=== PATIENT | female | born 1955 | race Caucasian/White ===

== ENCOUNTER 2017-11-24 15:19 | Emergency (ER) | payer OTHER ==
[2017-11-24] MEDS ORDERED: Sulfamethoxazole/Trimethoprim 800-160 MG Tab ONE (16:00)
--- NOTE | 2017-11-24 17:39 | ER ---
Date of Service: 11/24/2017 HISTORY OF PRESENT ILLNESS: The patient is a 62-year-old female who comes in today concerned that she may have a urinary tract infection. She notes she has an unusual odor to her urine. She also has a little bit of low back discomfort. She does not have flank pain. She does not have nausea, vomiting, fevers, or chills. She does not really even have much of a dysuria. ALLERGIES: SHE HAS NO ALLERGIES. PHYSICAL EXAMINATION: GENERAL: On physical exam, she is alert, oriented, no apparent distress. HEENT : Unremarkable. NECK: Supple. No nodes. LUNGS: Clear. HEART: Regular sinus rhythm. No CVA tenderness. VITAL SIGNS: Heart rate is 75, blood pressure is 121/77, O2 saturation is 99%. LABORATORY DATA: UA was obtained which dips small positive for leukocytes. It is nitrite negative, specific gravity is 1.010. The patient has 5-10 white blood cells and an occasional white blood cell clump. ASSESSMENT: Urinary tract infection, uncomplicated cystitis. PLAN: I have put her on some Bactrim DS 1 p.o. b.i.d. x3 days. Patient to return to clinic if this fails to resolve the problem or for worsening symptoms. WHITNEY /[id number] CARL
== END 2017-11-24 16:16 | disposition home or self-care (01) ==
LOC: LB.ED 15:19
DX: N30.90 Cystitis, unspecified without hematuria (principal)
CPT/HCPCS: 81001; 99284; A9270

== ENCOUNTER 2022-10-23 11:58 | Emergency (ER) | payer MEDICARE, OTHER | END 2022-10-23 12:56 | disposition home or self-care (01) | LOC: LB.ED 11:58 | DX: L03.113 Cellulitis of right upper limb (principal) | CPT/HCPCS: 99283 ==